=== PATIENT | female | born 1980 | race American Indian/Alaskan Native ===

== ENCOUNTER 2021-07-13 23:46 | Emergency (ER) | payer OTHER ==
[2021-07-14 09:27] LABS: Alanine Aminotransferase 40 units/L (7-56); Albumin 4.6 g/dL (3.9-5); Blood Urea Nitrogen 10 mg/dL (7-17); Calcium 8.2 mg/dL (8.4-10.2); Hemolysis Index 18
[2021-07-14 09:29] LABS: Hematocrit 38.1 % (30.3-42.9); Hemoglobin 12.1 gm/dl (10.1-14.3); Mean Corpuscular HGB Conc 32 % (30-34); Mean Corpuscular Volume 95 fl (79-97); Platelet Count 293 K/mm3 (140-440); Red Blood Count 4.03 M/mm3 (3.65-5.03); Red Cell Distribution Width 13.6 % (13.2-15.2)
[2021-07-14 09:47] LABS: BUN/Creatinine Ratio 17
[2021-07-14 10:19] LABS: Bilirubin,Urine NEG (Negative); Blood,Urine NEG (Negative); Color,Urine Yellow (Yellow); Protein,Urine <15 mg/dL mg/dL (Negative); RBC,Urine < 1.0 /HPF (0.0-6.0); Urobilinogen,Urine < 2.0 mg/dL (<2.0)
[2021-07-14] MEDS ORDERED: MAGNESIUM SULFATE 2 GM/50 ML BAG IV ONE ×2 (10:33→11:43)
[2021-07-14] MEDS ORDERED: POTASSIUM CHLORIDE ER 20 MEQ TAB PO ONE (10:34)
[2021-07-14] MEDS ORDERED: POTASSIUM CHLORIDE 10 MEQ 10 MEQ/100 ML BAG IV ONE (10:34)
[2021-07-14 10:45] LABS: HCG Qualitative,Urine Negative (Negative)
[2021-07-14] MEDS ORDERED: MAGNESIUM SULFATE 4 GM/100 ML BAG IV ONE (11:44)
--- NOTE | 2021-07-14 14:30 | Emergency Department Report ---
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 She states that she has a known history of malabsorption issues for which she takes magnesium and potassium daily, but she states that over the past week she has not taken her magnesium because she feels like it worsens her diarrhea. She states that she had the same type of diarrhea with the hand cramping a few years ago and she has severely low magnesium levels so she decided to come in for further evaluation today. She denies abdominal pain, fever, nausea, vomiting, and vaginal discharge. MD Complaint: other (Bilateral hand) -: Gradual, days(s) (2-3) Location: left, right, upper extremity History of Same: Yes -: No myalgia, No arthralgia, No fever, No associated dyspnea, No associated chest pain Severity scale (0 -10): 0 Associated Symptoms: denies: chest pain, shortness of breath, fever, myalgias, arthralgias, rash - Related Data Allergies Allergy/AdvReac Type Severity Reaction Status Date / Time metoclopramide [From Reglan] AdvReac Itching Verified 07/14/21 11:37 ED Review of Systems ROS: Stated complaint: FINGERS /HANDS CRAMPING Other details as noted in HPI Comment: All other systems reviewed and negative Constitutional: denies: chills ENT: denies: congestion Respiratory: denies: cough, shortness of breath, SOB with exertion, SOB at rest, wheezing Cardiovascular: denies: chest pain, palpitations, dyspnea on exertion Gastrointestinal: abdominal pain, diarrhea. denies: nausea, vomiting, hematemesis, melena, hematochezia Genitourinary: denies: urgency, dysuria, frequency, hematuria, discharge, abnormal menses Skin: denies: rash Neurological: denies: headache, weakness, numbness, paresthesias, confusion, abnormal gait, vertigo ED Past Medical Hx - Past Medical History Previous Medical History?: Yes Hx Asthma: Yes Additional medical history: VA SHUNT. SHORT GUT SYMDROME. MULTIPLE GI PROBLEMS - Surgical History Past Surgical History?: Yes Additional Surgical History: ABDOMINAL PAIN - Social History Smoking Status: Never Smoker Substance Use Type: None ED Physical Exam - General Limitations: No Limitations General appearance: alert, in no apparent distress - Head Head exam: Present: atraumatic, normocephalic - Eye Eye exam: Present: normal appearance. Absent: conjunctival injection - Neck Neck exam: Present: normal inspection. Absent: tenderness, lymphadenopathy - Respiratory Respiratory exam: Present: normal lung sounds bilaterally. Absent: respiratory distress, wheezes, rales, rhonchi, stridor, chest wall tenderness - Cardiovascular Cardiovascular Exam: Present: tachycardia, normal heart sounds - GI/Abdominal GI/Abdominal exam: Present: soft, normal bowel sounds. Absent: distended, tenderness, guarding, rebound, rigid - Extremities Exam Extremities exam: Present: normal inspection, normal capillary refill. Absent: pedal edema, joint swelling - Back Exam Back exam: Present: normal inspection. Absent: CVA tenderness (R), CVA tenderness (L) - Neurological Exam Neurological exam: Present: alert, oriented X3, CN II-XII intact, normal gait, reflexes normal. Absent: motor sensory deficit - Psychiatric Psychiatric exam: Present: normal affect, normal mood - Skin Skin exam: Present: warm, dry, intact, normal color ED Course Vital Signs 07/13/21 07/14/21 07/14/21 23:54 11:43 14:02 Temperature 98 F Pulse Rate 110 H 85 Respiratory 18 18 Rate Blood Pressure 160/80 Blood Pressure 125/71 [Left] O2 Sat by Pulse 98 96 96 Oximetry 07/14/21 15:48 Temperature Pulse Rate 79 Respiratory 20 Rate Blood Pressure Blood Pressure 147/72 [Left] O2 Sat by Pulse 97 Oximetry - Reevaluation(s) Reevaluation #1: 07/14/21 14:29 Patient states that cramping to hands has resolved. Patient noted to have normal reflexes at this time. Magnesium replacement infusion completed and awaiting repeat level. 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 She states that she has a known history of malabsorption issues for which she takes magnesium and potassium daily, but she states that over the past week she has not taken her magnesium because she feels like it worsens her diarrhea. She states that she had the same type of diarrhea with the hand cramping a few years ago and she has severely low magnesium levels so she decided to come in for further evaluation today. She denies abdominal pain, fever, nausea, vomiting, and vaginal discharge. No gross abnormalities noted on assessment. Low potassium and magnesium were replaced and repeat magnesium level was 2.3. Patient did not have any changes in reflexes. She continues to deny abdominal pain, nausea vomiting, dizziness. She states that cramping to hands has resolved. She will not be discharged home with any prescription because she has potassium and magnesium that she takes at home, and she was advised to restart potassium and magnesium as previously ordered by her GI specialist. She was also advised to call GI in the morning to schedule an appointment for later this week for further evaluation and management. She was given information on foods to decrease diarrhea. She was advised to return to the emergency department for any concerning symptoms. She verbalized understanding of and agreement with plan of care. Critical care attestation.: If time is entered above; I have spent that time in minutes in the direct care of this critically ill patient, excluding procedure time. ED Disposition Clinical Impression: Hypomagnesemia, Hypokalemia Diarrhea Qualifiers: Diarrhea type: unspecified type Qualified Code(s): R19.7 - Diarrhea, unspecified Disposition: 01 HOME / SELF CARE / HOMELESS Is pt being admited?: No Does the pt Need Aspirin: No Condition: Stable Instructions: Hypomagnesemia, Hypokalemia, Food Choices to Help Relieve Diarrhea, Adult, Potassium Content of Foods, Diarrhea, Adult, [id number] Additional Instructions: Restart home potassium and magnesium pills as discussed. Call your GI specialist for an appointment in the next few days. Return to the emergency department as needed. Referrals: PRIMARY CARE, [Primary Care Provider] - 3-5 Days Time of Disposition: 15:27
[2021-07-14 15:49] VITALS: BP 147/72
== END 2021-07-14 15:51 | disposition home or self-care (01) ==
LOC: ED 23:46
DX: E83.42 Hypomagnesemia (principal); E87.6 Hypokalemia; R19.7 Diarrhea, unspecified; J45.909 Unspecified asthma, uncomplicated
CPT/HCPCS: 36415; 80053; 81001; 81025; 83735; 85027; 96365; 96366; 96368; 99284; J3475; J3480